=== PATIENT | female | born 1950 | race Caucasian/White ===

== ENCOUNTER 2020-08-13 06:23 | Outpatient (CLI) | payer MEDICARE, OTHER ==
[~2020-08-13] VITALS: Ht 152.4 cm; Wt 68.6 kg
[2020-08-13] MEDS ORDERED: OXCA150T18 PO (10:19)
[2020-08-13] MEDS ORDERED: CRAN1TAB4 PO (10:34)
[2020-08-13] MEDS ORDERED: CYAN100088 PO (10:34)
[2020-08-13] MEDS ORDERED: RIZA10TA23 PO (10:34)
[2020-08-13] MEDS ORDERED: CETI10TA49 PO (10:34)
[2020-08-13] MEDS ORDERED: LEVO125C4 PO (10:34)
[2020-08-13] MEDS ORDERED: ZINC50TA11 PO (10:34)
[2020-08-13] MEDS ORDERED: DULO20CA19 PO (10:34)
[2020-08-13] MEDS ORDERED: CALC-857 PO (10:34)
[2020-08-13] MEDS ORDERED: CHOL200059 PO (10:34)
[2020-08-13] MEDS ORDERED: [UNRECOGNIZED DRUG - CODE] IM (10:34)
[2020-08-13] MEDS ORDERED: OMEP20CA18 PO (10:34)
[2020-08-16] MEDS ORDERED: ACHD5005 PO (13:46)
== END 2020-08-13 10:42 | disposition home or self-care (01) ==
LOC: PREOP 06:23
PROVIDERS: ATTEND Surgery
DX: Z01.818 Encounter for other preprocedural examination (principal)

== ENCOUNTER 2020-08-16 11:24 | Day surgery (SDC) | payer MEDICARE, OTHER ==
[~2020-08-16] VITALS: Ht 152.4 cm; Wt 68.9 kg
[2020-08-16] VITALS (9 sets, daily range): BP systolic 118–144; BP diastolic 63–74
[~2020-08-16 11:24] MED LIST: CALC-857 PO; CETI10TA49 PO; CHOL200059 PO; CRAN1TAB4 PO; CYAN100088 PO; DULO20CA19 PO; LEVO125C4 PO; OMEP20CA18 PO; OXCA150T18 PO; RIZA10TA23 PO; ZINC50TA11 PO; [UNRECOGNIZED DRUG - CODE] IM
[2020-08-16] MEDS ORDERED: MIDAZOLAM 2 MG/2 ML (VERSED) VIAL ONE (11:37)
[2020-08-16] MEDS ORDERED: PROPOFOL INJECTION 50 ML IV ONE (11:37)
[2020-08-16] MEDS ORDERED: 0.9% SODIUM CHLORIDE PF INJ 20 ML VIAL ONE (11:40)
[2020-08-16] MEDS ORDERED: LIDOCAINE/EPI 1%-1:100,000 (XYLOCAINE) 50 ML ONE (11:40)
[2020-08-16] MEDS ORDERED: LACTATED RINGERS 1,000 ML IV PRN (11:45)
[2020-08-16] MEDS ORDERED: ceFAZolin 2 GM IV Premixed 50 ML IV ONE (11:45)
--- NOTE | 2020-08-16 12:56 | Progress Note-Pre Operative ---
Pre-Operative Progress Note H&P Reviewed The H&P was reviewed, patient examined and no changes noted. Time Seen by Provider: 12:54 Date H&P Reviewed: Aug 16, 2020 Time H&P Reviewed: 12:54 Pre-Operative Diagnosis: Endometrial CA, Venous Insufficiency SAL MONROE DO Aug 16, 2020 12:56
[2020-08-16] MEDS: HEParin (CENTRAL IV FLUSH) 500 UNIT/5 ML SYR ONE ×2 (13:36→13:37)
--- NOTE | 2020-08-16 13:45 | Progress Note-Post Operative ---
Post-Operative Progess Note Surgeon (s)/Assembling Fabricator (s) Surgeon SAL MONROE DO Assembling Fabricator: HEATHER Howard Pre-Operative Diagnosis Endometrial CA, Venous Insufficiency Post-Operative Diagnosis same Procedure & Operative Findings Date of Procedure 08/16/20 Procedure Performed/Findings PROCEDURE: [Right] subclavian vein port placement. COMPLICATIONS: None. INDICATIONS: The patient is a 70 year old female [with Endometrial CA and Venous Insufficiency]. Patient understands the risks and benefits of port placement and wished to proceed with the procedure. Consent was signed on the chart. PROCEDURE: The patient was taken to the operating suite, was prepped and draped in the sterile fashion. A surgical pause was performed. Loca lidocaine was used to infiltrate towards the clavicle and along the right anterior chest wall. Using 18gauge finder needle with negative inspiration the right subclavian vein was accessed on the first attempt. Dark nonpulsatile blood was withdrawn. The wire was inserted. Fluoroscopy assured proper placement. The needle and the wire was then secured. A [#11] blade scalpel was used to make an incision at the wire and over the right chest. Cautery was used to dissect down to the pectoral fascia. A pocket was created with blunt dissection. The dilator sheath was then advanced over the wire under fluoroscopy and the dilator and wire were removed. The Groshong catheter was inserted through the sheath and the sheath was then removed. The Groshong wire was removed. The catheter was then tunneled to the right chest pocket. Fluoroscopy was used to cut to length and this was then attached to the port which was then placed within the pocket. The port was then accessed without difficulty. It was then flushed with saline and then heparin. The subcutaneous tissues were then reapproximated using 3-0 Vicryl. The skin was closed with 4-0 Undyed monocryl, subcuticular stitches. The port had been sewn down to the chest wall with 3-0 Prolene. The areas were then washed and dried. Skin Affix was placed over incision. The patient tolerated the procedure well without complication and was taken to recovery room in stable condition. Anesthesia Type IV sedation by UTILITY HELICOPTER REPAIRER Estimated Blood Loss Estimated blood loss (mL): scant Specimens/Packing Specimens Removed none SAL MONROE DO Aug 16, 2020 13:45
[2020-08-16] MEDS ORDERED: ACHD5005 PO (13:46)
--- NOTE | 2020-08-16 13:47 | Discharge Inst-Surgical ---
Discharge Inst-Surgical Depart Medication/Instructions New, Converted or Re-Newed RX: RX Given to Pt/Family Patient Instructions Follow up Appt: Make appointment for 1 week. [phone] Instructions: May shower in 24 hours, no tub bath or soaking. Use incentive spirometer at home as directed. No Smoking Skin/Wound Care: May remove bandages in am. You need to leave the Dermabond on incision it will fall off on it's own. Symptoms to Report: Appetite Changes, Extremity Discoloration, Numbness/Tingling, Swelling Increased, Bleeding Excessive, Eyesight Changes, Pain Increased, Urine Color Change, Constipation(Persistent), Fever over 101 degree F, Pain/Pressure in chest, Urinating Difficulty, Cough Up/Vomit Blood, Heart Beat Irreg/Pounding, P ain/Pressure in jaw, Cramps in feet or legs, Lightheadedness, Pain/Pressure in shoulder, Diarrhea(Persistent), Memory Changes Suddenly, Questions/Concerns, Weight gain consecutive days, Dizziness/Fainting, Nausea/Vomiting, Shortness of Breath, Weight gain over 2 pounds If questions or concerns contact your physician Or seek help at emergency department. Activity Activity as Tolerated: Yes Activity Instructions: Avoid Stress to Incision Driving Instructions: No Driving/Refer to Dr. Linder Discharge Diet: No Restrictions Diet After 24 Hours: Clear Liquid if Nauseous If Any Problems/Questions/Issu: Contact Your Physician, Go to Emergency Room Skin/Wound Care Infection Signs and Symptoms: Increased Redness, Foul Odor of Wound, Increased Drainage, Skin Itchy or Has a Rash, Increased Swelling, Temperature Above 101 F Bathing Instructions: Shower Stitches/[place]/Dermabond Dis: SAL Ken DO Aug 16, 2020 13:47
[2020-08-16] MEDS ORDERED: fentaNYL INJ 100 MCG/2 ML AMP ONE (13:58)
[2020-08-16] MEDS ORDERED: fentaNYL INJ 100 MCG/2 ML AMP IVP ONE (14:15)
--- NOTE | 2020-08-16 14:16 | Anesthesia-General Post-Op ---
MAC Patient Condition Mental Status/LOC: Same as Preop Cardiovascular: Satisfactory Nausea/Vomiting: Absent Respiratory: Satisfactory Pain: Controlled Complications: Absent Post Op Complications Complications None Follow Up Care/Instructions Patient Instructions None needed. Anesthesiology Discharge Order Discharge Order Patient is doing well, no complaints, stable vital signs, no apparent adverse anesthesia problems. No complications reported per nursing. PEPE BUTCHER CRNA Aug 16, 2020 14:15
[2020-08-16] MEDS ORDERED: HYDROcodone/APAP 5 MG/325 MG (LORTAB) TAB ONE (14:37)
[2020-08-16] MEDS ORDERED: HYDROcodone/APAP 5 MG/325 MG (LORTAB) TAB PO ONE (14:45)
--- NOTE | 2020-08-16 18:12 | Diagnostic Imaging Report ---
INDICATION: Central line placement IMPRESSION: 4 seconds of fluoroscopy and single AP digital image of the chest was obtained in surgery by Dr. Jansen. Image shows right subclavian Port-A-Cath with tip projecting over the SVC. Dictated by: Dictated on workstation # [id number]
== END 2020-08-16 15:45 | disposition home or self-care (01) ==
LOC: SDC 11:24
PROVIDERS: ATTEND Surgery
DX: C54.1 Malignant neoplasm of endometrium (principal); I87.2 Venous insufficiency (chronic) (peripheral); E03.9 Hypothyroidism, unspecified; K21.9 Gastro-esophageal reflux disease without esophagitis; G51.39 Clonic hemifacial spasm, unspecified; R56.9 Unspecified convulsions; R25.1 Tremor, unspecified; Z79.899 Other long term (current) drug therapy; Z90.710 Acquired absence of both cervix and uterus; Z98.890 Other specified postprocedural states; Z90.722 Acquired absence of ovaries, bilateral; Z79.890 Hormone replacement therapy; Z87.39 Personal history of other diseases of the musculoskeletal system and connective tissue; Z79.1 Long term (current) use of non-steroidal anti-inflammatories (NSAID); Z79.891 Long term (current) use of opiate analgesic; Z82.3 Family history of stroke; Z82.49 Family history of ischemic heart disease and other diseases of the circulatory system; Z80.0 Family history of malignant neoplasm of digestive organs; Z80.3 Family history of malignant neoplasm of breast
CPT/HCPCS: 36561; 76000; 87081; C1788

== ENCOUNTER 2020-10-19 09:23 | Outpatient (RCR) | payer MEDICARE, OTHER ==
[2020-08-11 10:53] LABS: BASOPHILS % (AUTO) 1 % (0-10); EOSINOPHILS # (AUTO) 0.2 10^3/uL (0.0-0.3); EOSINOPHILS % (AUTO) 3 % (0-10); HEMATOCRIT 43 % (35-52); HEMOGLOBIN 13.8 g/dL (11.5-16.0); LYMPHOCYTES # (AUTO) 1.6 10^3/uL (1.0-4.0); LYMPHOCYTES % (AUTO) 31 % (12-44); MEAN CORPUSCULAR HEMOGLOBIN 31 pg (25-34); MEAN CORPUSCULAR HGB CONC 32 g/dL (32-36); MEAN CORPUSCULAR VOLUME 97 fL (80-99); MEAN PLATELET VOLUME 9.5 fL (9.0-12.2); MONOCYTES # (AUTO) 0.4 10^3/uL (0.0-1.0); MONOCYTES % (AUTO) 8 % (0-12); NEUTROPHILS # (AUTO) 2.8 10^3/uL (1.8-7.8); NEUTROPHILS % (AUTO) 56 % (42-75); PLATELET COUNT 238 10^3/uL (130-400)
[2020-08-11 11:12] LABS: ALANINE AMINOTRANSFERASE 24 U/L (0-55); ALBUMIN 4.3 GM/DL (3.2-4.5); ALKALINE PHOSPHATASE 71 U/L (40-136); BILIRUBIN,TOTAL 0.3 MG/DL (0.1-1.0); BUN/CREATININE RATIO 12; CALCIUM 9.3 MG/DL (8.5-10.1); CARBON DIOXIDE 26 MMOL/L (21-32); CHLORIDE 105 MMOL/L (98-107); CREATININE SERUM 0.89 MG/DL (0.60-1.30); GFR ESTIMATED > 60; GLUCOSE 147 MG/DL (70-105); POTASSIUM 3.8 MMOL/L (3.6-5.0); SODIUM 142 MMOL/L (135-145); TOTAL PROTEIN 7.8 GM/DL (6.4-8.2)
[2020-08-24 10:27] LABS: BASOPHILS % (AUTO) 0 % (0-10); EOSINOPHILS # (AUTO) 0.2 10^3/uL (0.0-0.3); EOSINOPHILS % (AUTO) 8 % (0-10); HEMATOCRIT 38 % (35-52); HEMOGLOBIN 12.5 g/dL (11.5-16.0); LYMPHOCYTES # (AUTO) 1.1 10^3/uL (1.0-4.0); LYMPHOCYTES % (AUTO) 41 % (12-44); MEAN CORPUSCULAR HEMOGLOBIN 31 pg (25-34); MEAN CORPUSCULAR HGB CONC 33 g/dL (32-36); MEAN CORPUSCULAR VOLUME 94 fL (80-99); MEAN PLATELET VOLUME 10.5 fL (9.0-12.2); MONOCYTES # (AUTO) 0.1 10^3/uL (0.0-1.0); MONOCYTES % (AUTO) 3 % (0-12); NEUTROPHILS # (AUTO) 1.3 10^3/uL (1.8-7.8); NEUTROPHILS % (AUTO) 48 % (42-75); PLATELET COUNT 162 10^3/uL (130-400); WHITE BLOOD COUNT 2.6 10^3/uL (4.3-11.0)
[2020-08-24 10:44] LABS: BUN/CREATININE RATIO 19; CALCIUM 9.1 MG/DL (8.5-10.1); CARBON DIOXIDE 24 MMOL/L (21-32); CHLORIDE 104 MMOL/L (98-107); CREATININE SERUM 0.69 MG/DL (0.60-1.30); GFR ESTIMATED > 60; GLUCOSE 111 MG/DL (70-105); POTASSIUM 3.9 MMOL/L (3.6-5.0); SODIUM 136 MMOL/L (135-145)
[2020-08-31 14:05] LABS: BASOPHILS % (AUTO) 1 % (0-10); EOSINOPHILS # (AUTO) 0.2 10^3/uL (0.0-0.3); EOSINOPHILS % (AUTO) 7 % (0-10); HEMATOCRIT 37 % (35-52); LYMPHOCYTES # (AUTO) 1.9 10^3/uL (1.0-4.0); LYMPHOCYTES % (AUTO) 64 % (12-44); MEAN CORPUSCULAR HEMOGLOBIN 31 pg (25-34); MEAN CORPUSCULAR HGB CONC 33 g/dL (32-36); MEAN CORPUSCULAR VOLUME 97 fL (80-99); MEAN PLATELET VOLUME 9.2 fL (9.0-12.2); MONOCYTES # (AUTO) 0.5 10^3/uL (0.0-1.0); MONOCYTES % (AUTO) 16 % (0-12); NEUTROPHILS # (AUTO) 0.3 10^3/uL (1.8-7.8); NEUTROPHILS % (AUTO) 11 % (42-75); PLATELET COUNT 269 10^3/uL (130-400); WHITE BLOOD COUNT 2.9 10^3/uL (4.3-11.0)
[2020-08-31 14:25] LABS: BUN/CREATININE RATIO 11; CALCIUM 9.2 MG/DL (8.5-10.1); CARBON DIOXIDE 21 MMOL/L (21-32); CHLORIDE 107 MMOL/L (98-107); CREATININE SERUM 0.82 MG/DL (0.60-1.30); GFR ESTIMATED > 60; GLUCOSE 137 MG/DL (70-105); POTASSIUM 3.8 MMOL/L (3.6-5.0); SODIUM 141 MMOL/L (135-145)
[2020-09-07 11:09] LABS: BASOPHILS % (AUTO) 0 % (0-10); EOSINOPHILS % (AUTO) 0 % (0-10); HEMATOCRIT 39 % (35-52); HEMOGLOBIN 12.8 g/dL (11.5-16.0); LYMPHOCYTES # (AUTO) 0.9 10^3/uL (1.0-4.0); LYMPHOCYTES % (AUTO) 8 % (12-44); MEAN CORPUSCULAR HEMOGLOBIN 31 pg (25-34); MEAN CORPUSCULAR HGB CONC 33 g/dL (32-36); MEAN CORPUSCULAR VOLUME 96 fL (80-99); MEAN PLATELET VOLUME 8.8 fL (9.0-12.2); MONOCYTES # (AUTO) 0.1 10^3/uL (0.0-1.0); MONOCYTES % (AUTO) 1 % (0-12); NEUTROPHILS # (AUTO) 9.5 10^3/uL (1.8-7.8); NEUTROPHILS % (AUTO) 90 % (42-75); PLATELET COUNT 305 10^3/uL (130-400); WHITE BLOOD COUNT 10.5 10^3/uL (4.3-11.0)
[2020-09-07 11:28] LABS: ALANINE AMINOTRANSFERASE 24 U/L (0-55); ALBUMIN 4.4 GM/DL (3.2-4.5); ALKALINE PHOSPHATASE 81 U/L (40-136); BILIRUBIN,TOTAL 0.2 MG/DL (0.1-1.0); BUN/CREATININE RATIO 16; CALCIUM 9.3 MG/DL (8.5-10.1); CARBON DIOXIDE 20 MMOL/L (21-32); CHLORIDE 104 MMOL/L (98-107); CREATININE SERUM 0.82 MG/DL (0.60-1.30); GFR ESTIMATED > 60; GLUCOSE 277 MG/DL (70-105); MAGNESIUM 1.8 MG/DL (1.6-2.4); POTASSIUM 3.8 MMOL/L (3.6-5.0); SODIUM 139 MMOL/L (135-145); TOTAL PROTEIN 7.9 GM/DL (6.4-8.2)
[2020-09-14 14:11] LABS: BASOPHILS % (AUTO) 1 % (0-10); EOSINOPHILS # (AUTO) 0.2 10^3/uL (0.0-0.3); EOSINOPHILS % (AUTO) 5 % (0-10); HEMATOCRIT 39 % (35-52); LYMPHOCYTES # (AUTO) 1.7 10^3/uL (1.0-4.0); LYMPHOCYTES % (AUTO) 39 % (12-44); MEAN CORPUSCULAR HEMOGLOBIN 31 pg (25-34); MEAN CORPUSCULAR HGB CONC 33 g/dL (32-36); MEAN CORPUSCULAR VOLUME 95 fL (80-99); MEAN PLATELET VOLUME 10.4 fL (9.0-12.2); MONOCYTES # (AUTO) 0.1 10^3/uL (0.0-1.0); MONOCYTES % (AUTO) 3 % (0-12); NEUTROPHILS # (AUTO) 2.3 10^3/uL (1.8-7.8); NEUTROPHILS % (AUTO) 52 % (42-75); PLATELET COUNT 163 10^3/uL (130-400); WHITE BLOOD COUNT 4.4 10^3/uL (4.3-11.0)
[2020-09-14 14:27] LABS: BUN/CREATININE RATIO 21; CALCIUM 9.3 MG/DL (8.5-10.1); CARBON DIOXIDE 26 MMOL/L (21-32); CHLORIDE 100 MMOL/L (98-107); CREATININE SERUM 0.86 MG/DL (0.60-1.30); GFR ESTIMATED > 60; GLUCOSE 130 MG/DL (70-105); POTASSIUM 3.7 MMOL/L (3.6-5.0); SODIUM 136 MMOL/L (135-145)
[2020-09-21 09:50] LABS: BASOPHILS % (AUTO) 1 % (0-10); EOSINOPHILS # (AUTO) 0.1 10^3/uL (0.0-0.3); EOSINOPHILS % (AUTO) 6 % (0-10); HEMATOCRIT 36 % (35-52); HEMOGLOBIN 11.6 g/dL (11.5-16.0); LYMPHOCYTES # (AUTO) 1.5 10^3/uL (1.0-4.0); LYMPHOCYTES % (AUTO) 65 % (12-44); MEAN CORPUSCULAR HEMOGLOBIN 31 pg (25-34); MEAN CORPUSCULAR HGB CONC 32 g/dL (32-36); MEAN CORPUSCULAR VOLUME 98 fL (80-99); MEAN PLATELET VOLUME 9.2 fL (9.0-12.2); MONOCYTES # (AUTO) 0.4 10^3/uL (0.0-1.0); MONOCYTES % (AUTO) 17 % (0-12); NEUTROPHILS # (AUTO) 0.2 10^3/uL (1.8-7.8); NEUTROPHILS % (AUTO) 10 % (42-75); PLATELET COUNT 178 10^3/uL (130-400); WHITE BLOOD COUNT 2.3 10^3/uL (4.3-11.0)
[2020-09-21 10:14] LABS: BUN/CREATININE RATIO 15; CALCIUM 8.8 MG/DL (8.5-10.1); CARBON DIOXIDE 23 MMOL/L (21-32); CHLORIDE 106 MMOL/L (98-107); CREATININE SERUM 0.75 MG/DL (0.60-1.30); GFR ESTIMATED > 60; GLUCOSE 174 MG/DL (70-105); POTASSIUM 3.7 MMOL/L (3.6-5.0); SODIUM 139 MMOL/L (135-145)
[2020-09-28 09:31] LABS: BASOPHILS % (AUTO) 0 % (0-10); EOSINOPHILS % (AUTO) 0 % (0-10); HEMATOCRIT 38 % (35-52); HEMOGLOBIN 12.5 g/dL (11.5-16.0); LYMPHOCYTES # (AUTO) 0.8 10^3/uL (1.0-4.0); LYMPHOCYTES % (AUTO) 10 % (12-44); MEAN CORPUSCULAR HEMOGLOBIN 32 pg (25-34); MEAN CORPUSCULAR HGB CONC 33 g/dL (32-36); MEAN CORPUSCULAR VOLUME 98 fL (80-99); MEAN PLATELET VOLUME 9.1 fL (9.0-12.2); MONOCYTES # (AUTO) 0.1 10^3/uL (0.0-1.0); MONOCYTES % (AUTO) 1 % (0-12); NEUTROPHILS # (AUTO) 7.2 10^3/uL (1.8-7.8); NEUTROPHILS % (AUTO) 88 % (42-75); PLATELET COUNT 317 10^3/uL (130-400); WHITE BLOOD COUNT 8.2 10^3/uL (4.3-11.0)
[2020-09-28 09:49] LABS: ALBUMIN 4.4 GM/DL (3.2-4.5); BILIRUBIN,TOTAL 0.2 MG/DL (0.1-1.0); CALCIUM 9.7 MG/DL (8.5-10.1); CREATININE SERUM 0.99 MG/DL (0.60-1.30); MAGNESIUM 1.6 MG/DL (1.6-2.4); POTASSIUM 3.9 MMOL/L (3.6-5.0)
[2020-10-04 15:14] LABS: BASOPHILS % (AUTO) 1 % (0-10); EOSINOPHILS # (AUTO) 0.1 10^3/uL (0.0-0.3); EOSINOPHILS % (AUTO) 3 % (0-10); HEMATOCRIT 39 % (35-52); HEMOGLOBIN 12.7 g/dL (11.5-16.0); LYMPHOCYTES # (AUTO) 1.4 10^3/uL (1.0-4.0); LYMPHOCYTES % (AUTO) 36 % (12-44); MEAN CORPUSCULAR HEMOGLOBIN 31 pg (25-34); MEAN CORPUSCULAR HGB CONC 33 g/dL (32-36); MEAN CORPUSCULAR VOLUME 97 fL (80-99); MEAN PLATELET VOLUME 9.9 fL (9.0-12.2); MONOCYTES # (AUTO) 0.1 10^3/uL (0.0-1.0); MONOCYTES % (AUTO) 3 % (0-12); NEUTROPHILS # (AUTO) 2.1 10^3/uL (1.8-7.8); NEUTROPHILS % (AUTO) 57 % (42-75); PLATELET COUNT 187 10^3/uL (130-400); WHITE BLOOD COUNT 3.8 10^3/uL (4.3-11.0)
[2020-10-04 15:31] LABS: CHLORIDE 98 MMOL/L (98-107); POTASSIUM 4.1 MMOL/L (3.6-5.0); SODIUM 138 MMOL/L (135-145)
[2020-10-04 15:33] LABS: GLUCOSE 93 MG/DL (70-105)
[2020-10-04 15:34] LABS: CARBON DIOXIDE 28 MMOL/L (21-32)
[2020-10-04 15:37] LABS: CREATININE SERUM 0.88 MG/DL (0.60-1.30); GFR ESTIMATED > 60
[2020-10-04 15:38] LABS: BUN/CREATININE RATIO 18
[2020-10-12 09:42] LABS: BASOPHILS % (AUTO) 1 % (0-10); EOSINOPHILS # (AUTO) 0.1 10^3/uL (0.0-0.3); EOSINOPHILS % (AUTO) 3 % (0-10); HEMATOCRIT 36 % (35-52); HEMOGLOBIN 11.6 g/dL (11.5-16.0); LYMPHOCYTES # (AUTO) 1.5 10^3/uL (1.0-4.0); LYMPHOCYTES % (AUTO) 66 % (12-44); MEAN CORPUSCULAR HEMOGLOBIN 32 pg (25-34); MEAN CORPUSCULAR HGB CONC 32 g/dL (32-36); MEAN CORPUSCULAR VOLUME 99 fL (80-99); MEAN PLATELET VOLUME 9.4 fL (9.0-12.2); MONOCYTES # (AUTO) 0.3 10^3/uL (0.0-1.0); MONOCYTES % (AUTO) 15 % (0-12); NEUTROPHILS # (AUTO) 0.3 10^3/uL (1.8-7.8); NEUTROPHILS % (AUTO) 15 % (42-75); PLATELET COUNT 228 10^3/uL (130-400); WHITE BLOOD COUNT 2.2 10^3/uL (4.3-11.0)
[2020-10-12 10:02] LABS: BUN/CREATININE RATIO 14; CARBON DIOXIDE 23 MMOL/L (21-32); CHLORIDE 104 MMOL/L (98-107); CREATININE SERUM 0.76 MG/DL (0.60-1.30); GFR ESTIMATED > 60; GLUCOSE 177 MG/DL (70-105); POTASSIUM 3.8 MMOL/L (3.6-5.0); SODIUM 139 MMOL/L (135-145)
[~2020-10-19] VITALS: Ht 152.4 cm; Wt 68.5 kg
[~2020-10-19 09:23] MED LIST changes: +ACHD5005 PO; +FAMOTIDINE 20MG/2ML IV (CANCER CTR) IV SCH; +FOSAPREPITANT (CANCER CENTER) 150 MG in NS (IVPB) CANCER CENTER ONLY 150 ML IV SCH; +NORMAL SALINE IV SCH; +NS IV 1000 ML (CANCER CTR) IV SCH; +NS IV 500 ML (CANCER CENTER) 500 ML ONE; +PACLITAXEL IV SCH; +diphenhydrAMINE 25 MG TAB (BENADRYL) CANCER CENTER PO SCH; +diphenhydrAMINE 50 MG/ML INJ (CANCER CENTER) IV PRN
[2020-10-19 09:38] LABS: BASOPHILS % (AUTO) 1 % (0-10); EOSINOPHILS # (AUTO) 0.1 10^3/uL (0.0-0.3); EOSINOPHILS % (AUTO) 2 % (0-10); HEMATOCRIT 38 % (35-52); HEMOGLOBIN 12.3 g/dL (11.5-16.0); LYMPHOCYTES # (AUTO) 1.5 10^3/uL (1.0-4.0); LYMPHOCYTES % (AUTO) 36 % (12-44); MEAN CORPUSCULAR HEMOGLOBIN 32 pg (25-34); MEAN CORPUSCULAR HGB CONC 32 g/dL (32-36); MEAN CORPUSCULAR VOLUME 100 fL (80-99); MEAN PLATELET VOLUME 9.1 fL (9.0-12.2); MONOCYTES # (AUTO) 0.6 10^3/uL (0.0-1.0); MONOCYTES % (AUTO) 14 % (0-12); NEUTROPHILS % (AUTO) 47 % (42-75); PLATELET COUNT 329 10^3/uL (130-400); WHITE BLOOD COUNT 4.2 10^3/uL (4.3-11.0)
[2020-10-19 09:59] LABS: ALANINE AMINOTRANSFERASE 24 U/L (0-55); ALBUMIN 4.2 GM/DL (3.2-4.5); ALKALINE PHOSPHATASE 69 U/L (40-136); BILIRUBIN,TOTAL 0.2 MG/DL (0.1-1.0); BUN/CREATININE RATIO 13; CALCIUM 9.8 MG/DL (8.5-10.1); CARBON DIOXIDE 26 MMOL/L (21-32); CHLORIDE 105 MMOL/L (98-107); CREATININE SERUM 0.78 MG/DL (0.60-1.30); GFR ESTIMATED > 60; GLUCOSE 159 MG/DL (70-105); MAGNESIUM 1.7 MG/DL (1.6-2.4); POTASSIUM 3.9 MMOL/L (3.6-5.0); SODIUM 140 MMOL/L (135-145); TOTAL PROTEIN 7.2 GM/DL (6.4-8.2)
== END 2020-10-31 | disposition home or self-care (01) ==
LOC: ONC 09:23
PROVIDERS: ATTEND Internal Medicine Hematology & Oncology
DX: C54.1 Malignant neoplasm of endometrium (principal); E03.9 Hypothyroidism, unspecified
CPT/HCPCS: 36591; 77290; 77300; 77301; 77334; 77338; 77470; 80048; 80053; 83735; 85025; 86304; 96367; 96375; 96413; 96415; 96417; 99204; 99213; 99214

== ENCOUNTER 2021-01-31 09:52 | Outpatient (RCR) | payer MEDICARE, OTHER ==
[2020-11-23 10:51] LABS: BASOPHILS % (AUTO) 0 % (0-10); EOSINOPHILS # (AUTO) 0.2 10^3/uL (0.0-0.3); EOSINOPHILS % (AUTO) 5 % (0-10); HEMATOCRIT 38 % (35-52); HEMOGLOBIN 12.6 g/dL (11.5-16.0); LYMPHOCYTES # (AUTO) 0.8 10^3/uL (1.0-4.0); LYMPHOCYTES % (AUTO) 24 % (12-44); MEAN CORPUSCULAR HEMOGLOBIN 34 pg (25-34); MEAN CORPUSCULAR HGB CONC 34 g/dL (32-36); MEAN CORPUSCULAR VOLUME 101 fL (80-99); MEAN PLATELET VOLUME 9.4 fL (9.0-12.2); MONOCYTES # (AUTO) 0.4 10^3/uL (0.0-1.0); MONOCYTES % (AUTO) 12 % (0-12); NEUTROPHILS % (AUTO) 59 % (42-75); PLATELET COUNT 165 10^3/uL (130-400); WHITE BLOOD COUNT 3.4 10^3/uL (4.3-11.0)
[2020-11-23 11:08] LABS: ALANINE AMINOTRANSFERASE 35 U/L (0-55); ALBUMIN 4.1 GM/DL (3.2-4.5); ALKALINE PHOSPHATASE 56 U/L (40-136); BILIRUBIN,TOTAL 0.3 MG/DL (0.1-1.0); BUN/CREATININE RATIO 18; CALCIUM 9.5 MG/DL (8.5-10.1); CARBON DIOXIDE 28 MMOL/L (21-32); CHLORIDE 106 MMOL/L (98-107); CREATININE SERUM 0.71 MG/DL (0.60-1.30); GFR ESTIMATED > 60; GLUCOSE 149 MG/DL (70-105); POTASSIUM 3.6 MMOL/L (3.6-5.0); SODIUM 141 MMOL/L (135-145); TOTAL PROTEIN 7.2 GM/DL (6.4-8.2)
[2020-12-27 15:21] LABS: BASOPHILS % (AUTO) 1 % (0-10); EOSINOPHILS # (AUTO) 0.1 10^3/uL (0.0-0.3); EOSINOPHILS % (AUTO) 3 % (0-10); HEMATOCRIT 37 % (35-52); HEMOGLOBIN 12.2 g/dL (11.5-16.0); LYMPHOCYTES # (AUTO) 0.8 X 10^3 (1.0-4.0); LYMPHOCYTES % (AUTO) 16 % (12-44); MEAN CORPUSCULAR HEMOGLOBIN 35 pg (25-34); MEAN CORPUSCULAR HGB CONC 33 g/dL (32-36); MEAN CORPUSCULAR VOLUME 103 fL (80-99); MEAN PLATELET VOLUME 8.8 fL (9.0-12.2); MONOCYTES # (AUTO) 0.5 X 10^3 (0.0-1.0); MONOCYTES % (AUTO) 11 % (0-12); NEUTROPHILS # (AUTO) 3.4 X 10^3 (1.8-7.8); NEUTROPHILS % (AUTO) 69 % (42-75); PLATELET COUNT 243 10^3/uL (130-400); WHITE BLOOD COUNT 4.9 10^3/uL (4.3-11.0)
[2020-12-27 15:47] LABS: ALBUMIN 4.2 GM/DL (3.2-4.5); BILIRUBIN,TOTAL 0.2 MG/DL (0.1-1.0); CALCIUM 9.1 MG/DL (8.5-10.1); CREATININE SERUM 0.81 MG/DL (0.60-1.30); POTASSIUM 3.7 MMOL/L (3.6-5.0); TOTAL PROTEIN 7.6 GM/DL (6.4-8.2)
[2021-01-24 10:29] LABS: BASOPHILS % (AUTO) 0 % (0-10); EOSINOPHILS % (AUTO) 0 % (0-10); HEMATOCRIT 40 % (35-52); HEMOGLOBIN 13.3 g/dL (11.5-16.0); LYMPHOCYTES # (AUTO) 0.7 10^3/uL (1.0-4.0); LYMPHOCYTES % (AUTO) 8 % (12-44); MEAN CORPUSCULAR HEMOGLOBIN 33 pg (25-34); MEAN CORPUSCULAR HGB CONC 34 g/dL (32-36); MEAN CORPUSCULAR VOLUME 100 fL (80-99); MEAN PLATELET VOLUME 9.5 fL (9.0-12.2); MONOCYTES # (AUTO) 0.1 10^3/uL (0.0-1.0); MONOCYTES % (AUTO) 1 % (0-12); NEUTROPHILS % (AUTO) 90 % (42-75); PLATELET COUNT 235 10^3/uL (130-400); WHITE BLOOD COUNT 7.8 10^3/uL (4.3-11.0)
[2021-01-24 10:48] LABS: ALBUMIN 4.3 GM/DL (3.2-4.5); BILIRUBIN,TOTAL 0.2 MG/DL (0.1-1.0); CALCIUM 9.3 MG/DL (8.5-10.1); CREATININE SERUM 0.91 MG/DL (0.60-1.30); POTASSIUM 3.8 MMOL/L (3.6-5.0); TOTAL PROTEIN 7.8 GM/DL (6.4-8.2)
[~2021-01-31 09:52] MED LIST changes: -NS IV 500 ML (CANCER CENTER) 500 ML ONE; +PEGFILGRASTIM 6 MG/0.6ML NEULASTA SC SCH; +PEGFILGRASTIM-BMEZ 6 MG/0.6 ML ZIEXTENZO SQ SCH
[2021-01-31 10:08] LABS: BASOPHILS # (AUTO) 0.1 10^3/uL (0.0-0.1); MEAN CORPUSCULAR VOLUME 100 fL (80-99)
[2021-01-31 10:10] LABS: BASOPHILS % (AUTO) 2 % (0-10); EOSINOPHILS # (AUTO) 0.2 10^3/uL (0.0-0.3); EOSINOPHILS % (AUTO) 6 % (0-10); HEMATOCRIT 39 % (35-52); HEMOGLOBIN 12.9 g/dL (11.5-16.0); LYMPHOCYTES # (AUTO) 0.7 10^3/uL (1.0-4.0); LYMPHOCYTES % (AUTO) 22 % (12-44); MEAN CORPUSCULAR HEMOGLOBIN 33 pg (25-34); MEAN CORPUSCULAR HGB CONC 33 g/dL (32-36); MONOCYTES # (AUTO) 0.6 10^3/uL (0.0-1.0); MONOCYTES % (AUTO) 20 % (0-12); NEUTROPHILS # (AUTO) 1.3 10^3/uL (1.8-7.8); NEUTROPHILS % (AUTO) 41 % (42-75); PLATELET COUNT 80 10^3/uL (130-400); WHITE BLOOD COUNT 3.2 10^3/uL (4.3-11.0)
[2021-01-31 11:47] LABS: CALCIUM 9.4 MG/DL (8.5-10.1); CREATININE SERUM 0.73 MG/DL (0.60-1.30); POTASSIUM 3.7 MMOL/L (3.6-5.0)
== END 2021-02-01 | disposition home or self-care (01) ==
LOC: ONC 09:52
PROVIDERS: ATTEND Internal Medicine Hematology & Oncology
DX: Z51.11 Encounter for antineoplastic chemotherapy (principal); Z51.0 Encounter for antineoplastic radiation therapy; C54.1 Malignant neoplasm of endometrium; E03.9 Hypothyroidism, unspecified; B02.9 Zoster without complications; Z90.710 Acquired absence of both cervix and uterus; Z90.722 Acquired absence of ovaries, bilateral; Z98.890 Other specified postprocedural states; Z92.21 Personal history of antineoplastic chemotherapy; Z79.890 Hormone replacement therapy
CPT/HCPCS: 36591; 77336; 77386; 80048; 80053; 85025; 96368; 96372; 96375; 96413; 96415; 96417; 99213

== ENCOUNTER → 2021-03-30 | Outpatient (CLI) | payer MEDICARE, OTHER ==
[~2021-03-30] MED LIST changes: +CATHETER FLUSH 10 ML SYR IV PRN; -FAMOTIDINE 20MG/2ML IV (CANCER CTR) IV SCH; -FOSAPREPITANT (CANCER CENTER) 150 MG in NS (IVPB) CANCER CENTER ONLY 150 ML IV SCH; +HOLD METFORMIN - RECEIVED CONTRAST 20 ML VIAL IV SCH; +IOHEXOL 350 MG/ML 100 ML (OMNIPAQUE 350) VIAL IV ONE; -NORMAL SALINE IV SCH; +NS 100 ML (IVPB) BAG IV ONE; -NS IV 1000 ML (CANCER CTR) IV SCH; -PACLITAXEL IV SCH; -PEGFILGRASTIM 6 MG/0.6ML NEULASTA SC SCH; -PEGFILGRASTIM-BMEZ 6 MG/0.6 ML ZIEXTENZO SQ SCH; -diphenhydrAMINE 25 MG TAB (BENADRYL) CANCER CENTER PO SCH; -diphenhydrAMINE 50 MG/ML INJ (CANCER CENTER) IV PRN
--- NOTE | 2021-03-30 10:19 | Diagnostic Imaging Report ---
EXAMINATION: CT chest with intravenous contrast, CT abdomen and pelvis without and with intravenous contrast. TECHNIQUE: Pre and post intravenous contrast axial imaging of the abdomen and pelvis and post contrast axial imaging of the chest were performed. All CT scans use one or more of the following dose optimizing techniques: automated exposure control, MA and/or KvP adjustment based on patient size and exam type or iterative reconstruction. HISTORY: Endometrial cancer. COMPARISON: None available. FINDINGS: There is no edema or pneumonia. No pleural effusion. No pneumothorax. No suspicious nodules. There is mild atelectasis in the lung bases. There is no axillary or supraclavicular lymphadenopathy. There is no mediastinal lymphadenopathy. Heart size is normal. There are no coronary artery calcifications. No pericardial effusion. Aorta is normal in caliber. A right-sided port catheter is present. The liver is mildly steatotic. No focal liver lesions are seen. There is no biliary ductal dilation. Gallbladder is normal. Pancreas is normal. Spleen is normal. Adrenal glands are normal. The kidneys are normal. There is no hydronephrosis. Urinary bladder is normal. Uterus has been removed. Visualized bowel is normal in caliber without obstruction or inflammation. No free fluid or air. No abdominal or pelvic lymphadenopathy. Aorta is normal in caliber without aneurysm. There are no suspicious osseus lesions. IMPRESSION: No metastatic disease is seen in the chest, abdomen, or pelvis. Dictated by: Dictated on workstation # [id number]
== END ==
LOC: RAD 09:45
PROVIDERS: ATTEND Internal Medicine Hematology & Oncology
DX: Z51.11 Encounter for antineoplastic chemotherapy (principal); C54.1 Malignant neoplasm of endometrium
CPT/HCPCS: 71260; 74178

== ENCOUNTER 2021-04-07 10:59 | Outpatient (RCR) | payer MEDICARE, OTHER ==
[2021-02-08 10:17] LABS: BASOPHILS # (AUTO) 0.1 10^3/uL (0.0-0.1); BASOPHILS % (AUTO) 1 % (0-10); EOSINOPHILS # (AUTO) 0.2 10^3/uL (0.0-0.3); EOSINOPHILS % (AUTO) 4 % (0-10); HEMATOCRIT 38 % (35-52); HEMOGLOBIN 12.2 g/dL (11.5-16.0); LYMPHOCYTES # (AUTO) 1.2 10^3/uL (1.0-4.0); LYMPHOCYTES % (AUTO) 25 % (12-44); MEAN CORPUSCULAR HEMOGLOBIN 32 pg (25-34); MEAN CORPUSCULAR HGB CONC 32 g/dL (32-36); MEAN CORPUSCULAR VOLUME 100 fL (80-99); MEAN PLATELET VOLUME 9.8 fL (9.0-12.2); MONOCYTES # (AUTO) 0.5 10^3/uL (0.0-1.0); MONOCYTES % (AUTO) 10 % (0-12); NEUTROPHILS # (AUTO) 2.7 10^3/uL (1.8-7.8); NEUTROPHILS % (AUTO) 56 % (42-75); PLATELET COUNT 162 10^3/uL (130-400); WHITE BLOOD COUNT 4.8 10^3/uL (4.3-11.0)
[2021-02-08 10:30] LABS: CALCIUM 9.6 MG/DL (8.5-10.1); CREATININE SERUM 0.84 MG/DL (0.60-1.30); POTASSIUM 3.8 MMOL/L (3.6-5.0)
[2021-02-14 10:45] LABS: BASOPHILS % (AUTO) 0 % (0-10); EOSINOPHILS % (AUTO) 0 % (0-10); HEMATOCRIT 37 % (35-52); HEMOGLOBIN 12.2 g/dL (11.5-16.0); LYMPHOCYTES # (AUTO) 0.6 10^3/uL (1.0-4.0); LYMPHOCYTES % (AUTO) 14 % (12-44); MEAN CORPUSCULAR HEMOGLOBIN 33 pg (25-34); MEAN CORPUSCULAR HGB CONC 33 g/dL (32-36); MEAN CORPUSCULAR VOLUME 99 fL (80-99); MEAN PLATELET VOLUME 9.2 fL (9.0-12.2); MONOCYTES # (AUTO) 0.1 10^3/uL (0.0-1.0); MONOCYTES % (AUTO) 1 % (0-12); NEUTROPHILS # (AUTO) 3.7 10^3/uL (1.8-7.8); NEUTROPHILS % (AUTO) 84 % (42-75); PLATELET COUNT 275 10^3/uL (130-400); WHITE BLOOD COUNT 4.3 10^3/uL (4.3-11.0)
[2021-02-14 11:03] LABS: ALBUMIN 4.3 GM/DL (3.2-4.5); BILIRUBIN,TOTAL 0.3 MG/DL (0.1-1.0); CALCIUM 9.6 MG/DL (8.5-10.1); CREATININE SERUM 0.95 MG/DL (0.60-1.30); TOTAL PROTEIN 7.4 GM/DL (6.4-8.2)
[2021-02-21 10:28] LABS: BASOPHILS # (AUTO) 0.1 10^3/uL (0.0-0.1); BASOPHILS % (AUTO) 2 % (0-10); EOSINOPHILS # (AUTO) 0.2 10^3/uL (0.0-0.3); EOSINOPHILS % (AUTO) 5 % (0-10); HEMATOCRIT 35 % (35-52); HEMOGLOBIN 11.3 g/dL (11.5-16.0); LYMPHOCYTES % (AUTO) 25 % (12-44); MEAN CORPUSCULAR HEMOGLOBIN 33 pg (25-34); MEAN CORPUSCULAR HGB CONC 33 g/dL (32-36); MEAN CORPUSCULAR VOLUME 100 fL (80-99); MEAN PLATELET VOLUME 11.1 fL (9.0-12.2); MONOCYTES # (AUTO) 0.7 10^3/uL (0.0-1.0); MONOCYTES % (AUTO) 17 % (0-12); NEUTROPHILS # (AUTO) 1.8 10^3/uL (1.8-7.8); NEUTROPHILS % (AUTO) 45 % (42-75); PLATELET COUNT 50 10^3/uL (130-400); WHITE BLOOD COUNT 4.1 10^3/uL (4.3-11.0)
[2021-02-21 10:41] LABS: CALCIUM 9.2 MG/DL (8.5-10.1); CREATININE SERUM 0.75 MG/DL (0.60-1.30); POTASSIUM 3.7 MMOL/L (3.6-5.0)
[2021-02-28 10:04] LABS: BASOPHILS % (AUTO) 1 % (0-10); EOSINOPHILS # (AUTO) 0.2 10^3/uL (0.0-0.3); EOSINOPHILS % (AUTO) 3 % (0-10); HEMATOCRIT 36 % (35-52); HEMOGLOBIN 11.6 g/dL (11.5-16.0); LYMPHOCYTES # (AUTO) 1.2 10^3/uL (1.0-4.0); LYMPHOCYTES % (AUTO) 24 % (12-44); MEAN CORPUSCULAR HEMOGLOBIN 33 pg (25-34); MEAN CORPUSCULAR HGB CONC 32 g/dL (32-36); MEAN CORPUSCULAR VOLUME 103 fL (80-99); MEAN PLATELET VOLUME 10.1 fL (9.0-12.2); MONOCYTES # (AUTO) 0.4 10^3/uL (0.0-1.0); MONOCYTES % (AUTO) 8 % (0-12); NEUTROPHILS # (AUTO) 3.2 10^3/uL (1.8-7.8); NEUTROPHILS % (AUTO) 62 % (42-75); PLATELET COUNT 157 10^3/uL (130-400); WHITE BLOOD COUNT 5.2 10^3/uL (4.3-11.0)
[2021-02-28 10:20] LABS: CALCIUM 9.5 MG/DL (8.5-10.1); CREATININE SERUM 0.8 MG/DL (0.60-1.30); POTASSIUM 3.6 MMOL/L (3.6-5.0)
[2021-03-07 09:11] LABS: BASOPHILS % (AUTO) 0 % (0-10); EOSINOPHILS % (AUTO) 0 % (0-10); HEMATOCRIT 35 % (35-52); HEMOGLOBIN 11.6 g/dL (11.5-16.0); LYMPHOCYTES # (AUTO) 0.6 10^3/uL (1.0-4.0); LYMPHOCYTES % (AUTO) 12 % (12-44); MEAN CORPUSCULAR HEMOGLOBIN 34 pg (25-34); MEAN CORPUSCULAR HGB CONC 33 g/dL (32-36); MEAN CORPUSCULAR VOLUME 101 fL (80-99); MEAN PLATELET VOLUME 9.1 fL (9.0-12.2); MONOCYTES % (AUTO) 1 % (0-12); NEUTROPHILS # (AUTO) 4.5 10^3/uL (1.8-7.8); NEUTROPHILS % (AUTO) 86 % (42-75); PLATELET COUNT 298 10^3/uL (130-400); WHITE BLOOD COUNT 5.2 10^3/uL (4.3-11.0)
[2021-03-07 09:33] LABS: ALBUMIN 4.3 GM/DL (3.2-4.5); BILIRUBIN,TOTAL 0.4 MG/DL (0.1-1.0); CALCIUM 9.8 MG/DL (8.5-10.1); CREATININE SERUM 0.83 MG/DL (0.60-1.30); MAGNESIUM 1.7 MG/DL (1.6-2.4); POTASSIUM 3.9 MMOL/L (3.6-5.0); TOTAL PROTEIN 7.6 GM/DL (6.4-8.2)
[2021-03-14 09:48] LABS: MEAN CORPUSCULAR HEMOGLOBIN 33 pg (25-34); MEAN PLATELET VOLUME 11.8 fL (9.0-12.2)
[2021-03-14 09:49] LABS: BILIRUBIN,URINE NEGATIVE (NEGATIVE); CLARITY,URINE CLEAR; COLOR,URINE YELLOW; GLUCOSE, URINE (UA) NEGATIVE (NEGATIVE); KETONES,URINE NEGATIVE (NEGATIVE); LEUKOCYTE ESTERASE ,URINE 1+ (NEGATIVE); NITRITE,URINE NEGATIVE (NEGATIVE); PROTEIN,URINE 2+ (NEGATIVE)
[2021-03-14 09:50] LABS: BASOPHILS % (AUTO) 0 % (0-10); EOSINOPHILS # (AUTO) 0.3 10^3/uL (0.0-0.3); EOSINOPHILS % (AUTO) 4 % (0-10); HEMATOCRIT 33 % (35-52); HEMOGLOBIN 10.8 g/dL (11.5-16.0); LYMPHOCYTES # (AUTO) 1.3 10^3/uL (1.0-4.0); LYMPHOCYTES % (AUTO) 18 % (12-44); MEAN CORPUSCULAR HGB CONC 33 g/dL (32-36); MEAN CORPUSCULAR VOLUME 100 fL (80-99); MONOCYTES # (AUTO) 1.1 10^3/uL (0.0-1.0); MONOCYTES % (AUTO) 15 % (0-12); NEUTROPHILS # (AUTO) 3.7 10^3/uL (1.8-7.8); NEUTROPHILS % (AUTO) 52 % (42-75); WHITE BLOOD COUNT 7.2 10^3/uL (4.3-11.0)
[2021-03-14 09:56] LABS: PLATELET COUNT 49 10^3/uL (130-400)
[2021-03-14 10:13] LABS: CALCIUM 9.7 MG/DL (8.5-10.1); CREATININE SERUM 0.71 MG/DL (0.60-1.30); POTASSIUM 3.9 MMOL/L (3.6-5.0)
[2021-03-14 10:25] LABS: BACTERIA,URINE NEGATIVE /HPF
[2021-03-21 09:52] LABS: BASOPHILS % (AUTO) 0 % (0-10); EOSINOPHILS # (AUTO) 0.1 10^3/uL (0.0-0.3); EOSINOPHILS % (AUTO) 3 % (0-10); HEMATOCRIT 32 % (35-52); HEMOGLOBIN 10.4 g/dL (11.5-16.0); LYMPHOCYTES # (AUTO) 1.2 10^3/uL (1.0-4.0); LYMPHOCYTES % (AUTO) 24 % (12-44); MEAN CORPUSCULAR HEMOGLOBIN 34 pg (25-34); MEAN CORPUSCULAR HGB CONC 32 g/dL (32-36); MEAN CORPUSCULAR VOLUME 105 fL (80-99); MONOCYTES # (AUTO) 0.4 10^3/uL (0.0-1.0); MONOCYTES % (AUTO) 8 % (0-12); NEUTROPHILS # (AUTO) 2.9 10^3/uL (1.8-7.8); NEUTROPHILS % (AUTO) 61 % (42-75); PLATELET COUNT 160 10^3/uL (130-400); WHITE BLOOD COUNT 4.8 10^3/uL (4.3-11.0)
[2021-03-21 10:07] LABS: CALCIUM 9.3 MG/DL (8.5-10.1); CREATININE SERUM 0.74 MG/DL (0.60-1.30); POTASSIUM 3.5 MMOL/L (3.6-5.0)
[2021-03-30 08:41] LABS: BASOPHILS % (AUTO) 1 % (0-10); EOSINOPHILS # (AUTO) 0.1 10^3/uL (0.0-0.3); EOSINOPHILS % (AUTO) 4 % (0-10); HEMATOCRIT 34 % (35-52); HEMOGLOBIN 11.2 g/dL (11.5-16.0); LYMPHOCYTES % (AUTO) 29 % (12-44); MEAN CORPUSCULAR HEMOGLOBIN 34 pg (25-34); MEAN CORPUSCULAR HGB CONC 33 g/dL (32-36); MEAN CORPUSCULAR VOLUME 103 fL (80-99); MEAN PLATELET VOLUME 8.9 fL (9.0-12.2); MONOCYTES # (AUTO) 0.5 10^3/uL (0.0-1.0); MONOCYTES % (AUTO) 14 % (0-12); NEUTROPHILS # (AUTO) 1.8 10^3/uL (1.8-7.8); NEUTROPHILS % (AUTO) 52 % (42-75); PLATELET COUNT 259 10^3/uL (130-400); WHITE BLOOD COUNT 3.5 10^3/uL (4.3-11.0)
[2021-03-30 08:57] LABS: CALCIUM 9.5 MG/DL (8.5-10.1); CREATININE SERUM 0.69 MG/DL (0.60-1.30); POTASSIUM 3.9 MMOL/L (3.6-5.0)
[2021-04-04 10:16] LABS: BASOPHILS % (AUTO) 1 % (0-10); EOSINOPHILS # (AUTO) 0.3 10^3/uL (0.0-0.3); EOSINOPHILS % (AUTO) 11 % (0-10); HEMATOCRIT 35 % (35-52); HEMOGLOBIN 11.5 g/dL (11.5-16.0); LYMPHOCYTES # (AUTO) 0.9 10^3/uL (1.0-4.0); LYMPHOCYTES % (AUTO) 30 % (12-44); MEAN CORPUSCULAR HEMOGLOBIN 34 pg (25-34); MEAN CORPUSCULAR HGB CONC 33 g/dL (32-36); MEAN CORPUSCULAR VOLUME 105 fL (80-99); MEAN PLATELET VOLUME 9.1 fL (9.0-12.2); MONOCYTES # (AUTO) 0.4 10^3/uL (0.0-1.0); MONOCYTES % (AUTO) 14 % (0-12); NEUTROPHILS # (AUTO) 1.3 10^3/uL (1.8-7.8); NEUTROPHILS % (AUTO) 45 % (42-75); PLATELET COUNT 213 10^3/uL (130-400)
[2021-04-04 10:41] LABS: ALBUMIN 4.1 GM/DL (3.2-4.5); BILIRUBIN,TOTAL 0.3 MG/DL (0.1-1.0); CALCIUM 9.4 MG/DL (8.5-10.1); CREATININE SERUM 0.76 MG/DL (0.60-1.30); MAGNESIUM 1.6 MG/DL (1.6-2.4); POTASSIUM 3.7 MMOL/L (3.6-5.0); TOTAL PROTEIN 6.8 GM/DL (6.4-8.2)
[~2021-04-07 10:59] MED LIST changes: -CATHETER FLUSH 10 ML SYR IV PRN; +FAMOTIDINE 20MG/2ML IV (CANCER CTR) IV SCH; +FOSAPREPITANT (CANCER CENTER) 150 MG in NS (IVPB) CANCER CENTER ONLY 150 ML IV SCH; -HOLD METFORMIN - RECEIVED CONTRAST 20 ML VIAL IV SCH; -IOHEXOL 350 MG/ML 100 ML (OMNIPAQUE 350) VIAL IV ONE; +NORMAL SALINE IV SCH; -NS 100 ML (IVPB) BAG IV ONE; +NS IV 1000 ML (CANCER CTR) IV SCH; +PACLITAXEL IV SCH; +PEGFILGRASTIM-BMEZ 6 MG/0.6 ML ZIEXTENZO SQ SCH; +diphenhydrAMINE 25 MG TAB (BENADRYL) CANCER CENTER PO SCH; +diphenhydrAMINE 50 MG/ML INJ (CANCER CENTER) IV PRN
[2021-04-07 11:17] LABS: BILIRUBIN,URINE NEGATIVE (NEGATIVE); CLARITY,URINE CLEAR; COLOR,URINE YELLOW; GLUCOSE, URINE (UA) NEGATIVE (NEGATIVE); KETONES,URINE NEGATIVE (NEGATIVE); LEUKOCYTE ESTERASE ,URINE NEGATIVE (NEGATIVE); NITRITE,URINE NEGATIVE (NEGATIVE); PH,URINE 5.5 (5-9); PROTEIN,URINE NEGATIVE (NEGATIVE)
[2021-04-07 11:24] LABS: BACTERIA,URINE NEGATIVE /HPF; SQUAMOUS EPITHELIAL CELL,UR RARE /HPF
== END 2021-05-09 | disposition home or self-care (01) ==
LOC: ONC 10:59
PROVIDERS: ATTEND Internal Medicine Hematology & Oncology
DX: Z51.11 Encounter for antineoplastic chemotherapy (principal); C54.1 Malignant neoplasm of endometrium; E03.9 Hypothyroidism, unspecified; Z90.710 Acquired absence of both cervix and uterus; Z90.722 Acquired absence of ovaries, bilateral; Z98.890 Other specified postprocedural states; Z92.21 Personal history of antineoplastic chemotherapy; Z92.3 Personal history of irradiation
CPT/HCPCS: 36591; 80048; 80053; 81000; 83735; 85025; 86304; 96367; 96372; 96375; 96413; 96415; 96417

== ENCOUNTER 2021-05-16 10:54 | Outpatient (RCR) | payer MEDICARE, OTHER ==
[~2021-05-16 10:54] MED LIST changes: -FAMOTIDINE 20MG/2ML IV (CANCER CTR) IV SCH; -FOSAPREPITANT (CANCER CENTER) 150 MG in NS (IVPB) CANCER CENTER ONLY 150 ML IV SCH; -NORMAL SALINE IV SCH; -NS IV 1000 ML (CANCER CTR) IV SCH; -PACLITAXEL IV SCH; -PEGFILGRASTIM-BMEZ 6 MG/0.6 ML ZIEXTENZO SQ SCH; -diphenhydrAMINE 25 MG TAB (BENADRYL) CANCER CENTER PO SCH; -diphenhydrAMINE 50 MG/ML INJ (CANCER CENTER) IV PRN
[2021-05-16 11:31] LABS: BASOPHILS % (AUTO) 1 % (0-10); EOSINOPHILS # (AUTO) 0.2 10^3/uL (0.0-0.3); EOSINOPHILS % (AUTO) 5 % (0-10); HEMATOCRIT 38 % (35-52); HEMOGLOBIN 12.7 g/dL (11.5-16.0); LYMPHOCYTES # (AUTO) 1.4 10^3/uL (1.0-4.0); LYMPHOCYTES % (AUTO) 39 % (12-44); MEAN CORPUSCULAR HEMOGLOBIN 34 pg (25-34); MEAN CORPUSCULAR HGB CONC 33 g/dL (32-36); MEAN CORPUSCULAR VOLUME 103 fL (80-99); MEAN PLATELET VOLUME 8.9 fL (9.0-12.2); MONOCYTES # (AUTO) 0.4 10^3/uL (0.0-1.0); MONOCYTES % (AUTO) 12 % (0-12); NEUTROPHILS # (AUTO) 1.5 10^3/uL (1.8-7.8); NEUTROPHILS % (AUTO) 43 % (42-75); PLATELET COUNT 231 10^3/uL (130-400); WHITE BLOOD COUNT 3.5 10^3/uL (4.3-11.0)
[2021-05-16 11:51] LABS: ALBUMIN 4.1 GM/DL (3.2-4.5); BILIRUBIN,TOTAL 0.3 MG/DL (0.1-1.0); CALCIUM 9.6 MG/DL (8.5-10.1); CREATININE SERUM 0.77 MG/DL (0.60-1.30); POTASSIUM 3.8 MMOL/L (3.6-5.0); TOTAL PROTEIN 7.2 GM/DL (6.4-8.2)
== END 2021-06-03 | disposition home or self-care (01) ==
LOC: ONC 10:54
PROVIDERS: ATTEND Internal Medicine Hematology & Oncology
DX: Z51.11 Encounter for antineoplastic chemotherapy (principal); C54.1 Malignant neoplasm of endometrium; E03.9 Hypothyroidism, unspecified; Z90.710 Acquired absence of both cervix and uterus; Z90.722 Acquired absence of ovaries, bilateral; Z98.890 Other specified postprocedural states; Z92.21 Personal history of antineoplastic chemotherapy; Z92.3 Personal history of irradiation
CPT/HCPCS: 36591; 80053; 85025; 86304

== ENCOUNTER 2021-08-18 08:54 | Outpatient (RCR) | payer MEDICARE, OTHER | END 2021-09-01 | LOC: ONC 08:54 | PROVIDERS: ATTEND Radiology Radiation Oncology | DX: C54.1 Malignant neoplasm of endometrium (principal); E03.9 Hypothyroidism, unspecified; Z90.710 Acquired absence of both cervix and uterus; Z90.722 Acquired absence of ovaries, bilateral; Z98.890 Other specified postprocedural states; Z92.21 Personal history of antineoplastic chemotherapy; Z92.3 Personal history of irradiation | CPT/HCPCS: 99213 ==

== ENCOUNTER → 2022-06-06 | Outpatient (CLI) | payer MEDICARE, OTHER ==
[~2022-06-06] MED LIST changes: +RIZA-1 PO; -RIZA10TA23 PO
--- NOTE | 2022-06-07 09:38 | Diagnostic Imaging Report ---
Indication: Routine screening. Comparison is made with prior mammogram 06/24/2018. 2-D and 3-D bilateral screening mammography was performed with CAD. CAD is utilized. The current study was also evaluated with a Computer Aided Detection (CAD) system. Both breasts are heterogeneously dense, limiting the sensitivity of mammography. A spiculated density in the upper aspect of the left breast posterior depth anterior to the pectoralis muscle appears more prominent on today's study. This appears to be laterally located, barely seen on the CC view. Right breast is unremarkable. There are scattered benign calcifications. No malignant-appearing microcalcifications are seen. Left axilla is unremarkable. Right axilla contains an infuse-a port hub. IMPRESSION: BI-RADS 0 Left breast density. Additional views including spot compression, lateral as well as exaggerated CC views are recommended. ACR BI-RADS Category 0: Incomplete. (Needs additional imaging evaluation). Result letter will be mailed to the patient. Note: At least 10% of breast cancer is not imaged by mammography. Dictated by: Dictated on workstation # [id number]
== END ==
LOC: RAD 10:08
PROVIDERS: ATTEND Nurse Practitioner
DX: Z12.31 Encounter for screening mammogram for malignant neoplasm of breast (principal); C54.1 Malignant neoplasm of endometrium
CPT/HCPCS: 77063; 77067

== ENCOUNTER → 2022-06-14 | Outpatient (CLI) | payer MEDICARE, OTHER ==
--- NOTE | 2022-06-14 13:08 | Diagnostic Imaging Report ---
INDICATION: Left breast density. Patient presents for additional views. Correlation is made with screening study from 06/06/2022. Unilateral left 2-D and 3-D diagnostic mammography was performed. This included exaggerated CC, spot compression, exaggerated CC, spot compression mediolateral as well as conventional 90 degrees lateral views. There is a persistent irregular density in the upper outer left breast posterior depth. No other masses are seen. IMPRESSION: Persistent irregular density in the upper outer left breast posterior depth approximately 9 to 12 cm from the nipple. Further evaluation of this area with ultrasound is recommended and will be performed today. Dictated by: Dictated on workstation # [id number]
--- NOTE | 2022-06-14 19:11 | Diagnostic Imaging Report ---
INDICATION: Abnormal left mammogram. COMPARISON: Correlation is made with screening mammogram from 06/06/2022 and diagnostic mammogram from 06/14/2022. EXAMINATION: Sonographic interrogation of the upper outer left breast was performed. FINDINGS: There is an irregular hypoechoic nodule at the 2:00 to 2:30 location in left breast, 9 cm from the nipple, measuring 5 mm x 8 mm x 5 mm. This does show some internal vascularity. This likely accounts for the mammographic density. No other masses are seen. IMPRESSION: Irregular hypoechoic nodule at the 2:00 location of left breast, 9 cm from the nipple, likely accounting for the mammographic density. This is concerning for a small breast neoplasm. Tissue sampling is recommended. This would be amenable to ultrasound-guided core biopsy. ACR BI-RADS Category 4: Suspicious abnormality. Result letter will be mailed to the patient. Note: At least 10% of breast cancer is not imaged by mammography. Dictated by: Dictated on workstation # [id number]
== END ==
LOC: RAD 11:58
PROVIDERS: ATTEND Internal Medicine Hematology & Oncology
DX: N63.21 Unspecified lump in the left breast, upper outer quadrant (principal)
CPT/HCPCS: 76642; 77065; G0279

== ENCOUNTER → 2022-06-23 | Outpatient (CLI) | payer MEDICARE, OTHER ==
[~2022-06-23] MED LIST changes: +LIDOCAINE 1% INJ 30 ML (XYLOCAINE) VIAL INJ ONE
--- NOTE | 2022-06-23 11:10 | Diagnostic Imaging Report ---
Indication: Left breast nodule. Patient presents for ultrasound-guided biopsy. Patient brought to the sonographic suite placed on table in the supine position. Ultrasound imaging of the left breast was performed to evaluate appropriate entry site. Left breast was then prepped and draped in usual sterile fashion. Small amount of 1% lidocaine was utilized for local anesthesia. Multiple core biopsies were obtained of the hypoechoic nodule at the 2-2:30 location of the left breast, 9 cm from the nipple utilizing the 14-gauge mammotome device. A marker clip was then deployed.. Hemostasis was obtained using manual compression. Patient tolerated procedure well and was sent for postprocedure mammogram in satisfactory condition. IMPRESSION: Successful ultrasound guided core biopsy of the hypoechoic nodule at the 2-2:30 location left breast, 9 cm from the nipple. Pathology results are currently pending. Dictated by: Dictated on workstation # [id number]
--- NOTE | 2022-06-23 12:29 | Diagnostic Imaging Report ---
Indication: Left breast nodule, status post ultrasound-guided biopsy. Unilateral left 2-D exaggerated CC and ML mammography was performed after patient underwent ultrasound-guided left breast biopsy. Images demonstrate a marker clip in the upper outer aspect of the left breast posterior depth. IMPRESSION: Marker clip placement, as described. Dictated by: Dictated on workstation # [id number]
== END ==
LOC: RAD 09:00
PROVIDERS: ATTEND Internal Medicine Hematology & Oncology
DX: N63.22 Unspecified lump in the left breast, upper inner quadrant (principal)
CPT/HCPCS: 19083; 77065; G0279

== ENCOUNTER → 2022-07-10 | Outpatient (CLI) | payer MEDICARE, OTHER ==
[~2022-07-10] MED LIST changes: -LIDOCAINE 1% INJ 30 ML (XYLOCAINE) VIAL INJ ONE
== END ==
LOC: CARD 11:28
PROVIDERS: ATTEND Internal Medicine Hematology & Oncology
DX: Z51.11 Encounter for antineoplastic chemotherapy (principal); C50.412 Malignant neoplasm of upper-outer quadrant of left female breast; I07.1 Rheumatic tricuspid insufficiency; I34.0 Nonrheumatic mitral (valve) insufficiency
CPT/HCPCS: 93356; C8929; 93306

== ENCOUNTER 2022-07-30 07:12 | Emergency (ER) | payer MEDICARE, OTHER ==
[~2022-07-30] VITALS: Ht 152 cm; Wt 68.0 kg
[2022-07-30 07:30] VITALS: BP 127/82
[2022-07-30] MEDS ORDERED: NS IV 1000 ML 1,000 ML IV STA (07:42)
[2022-07-30 08:06] LABS: MEAN CORPUSCULAR VOLUME 95 fL (80-99)
[2022-07-30 08:08] LABS: BASOPHILS % (AUTO) 0 % (0-10); EOSINOPHILS % (AUTO) 3 % (0-10); HEMATOCRIT 36 % (35-52); LYMPHOCYTES # (AUTO) 0.5 10^3/uL (1.0-4.0); LYMPHOCYTES % (AUTO) 38 % (12-44); MEAN CORPUSCULAR HEMOGLOBIN 32 pg (25-34); MEAN CORPUSCULAR HGB CONC 34 g/dL (32-36); MEAN PLATELET VOLUME 10.2 fL (9.0-12.2); MONOCYTES % (AUTO) 3 % (0-12); NEUTROPHILS # (AUTO) 0.6 10^3/uL (1.8-7.8); NEUTROPHILS % (AUTO) 51 % (42-75); PLATELET COUNT 77 10^3/uL (130-400)
[2022-07-30 08:11] LABS: WHITE BLOOD COUNT 1.2 10^3/uL (4.3-11.0)
[2022-07-30 08:16] LABS: ALBUMIN 3.6 GM/DL (3.2-4.5); POTASSIUM 3.6 MMOL/L (3.6-5.0)
[2022-07-30 08:17] LABS: CALCIUM 8.4 MG/DL (8.5-10.1)
[2022-07-30 08:19] LABS: TOTAL PROTEIN 6.2 GM/DL (6.4-8.2)
[2022-07-30 08:20] LABS: BILIRUBIN,TOTAL 0.7 MG/DL (0.1-1.0)
[2022-07-30 08:22] LABS: CREATININE SERUM 0.74 MG/DL (0.60-1.30)
--- NOTE | 2022-07-30 08:22 | ED General ---
General Chief Complaint: Lower Extremity Stated Complaint: FALL, ANKLE PAIN Nursing Triage Note: Patient to ER FT1 via wc. Patient states she passed out on the toilet yesterday 07/29/2022 approx 0830. Patients ankle is swollen and in pain 5/10. Patient states the pain is up into her knee and hip. hx of breast cancer. patient denies being on blood thinners. Source of Information: Patient Exam Limitations: No Limitations History of Present Illness Date Seen by Provider: Jul 30, 2022 Time Seen by Provider: 07:33 Initial Comments Here with due to fall overnight. Apparently she passed out on the toilet while trying to have a bowel movement. She also passed out in the shower. states that she passed out at least 3 times. States that she recovered pretty well but was definitely out of it for a little bit during the bowel movements or stomach upset. Patient does have history of breast cancer and she is currently on chemotherapy with her last dose last Sunday. She states usually on Sunday and Sunday are her bad days after chemotherapy and they were this week as well. She states that it causes constipation and she has been using MiraLAX 1 capful at night and last night started having fairly significant bowel movement, during which she passed out. She also states that she had abdominal cramping which may have been the reason when she passed out during the shower. She does report hitting her head and does have some neck kamari n. She also complains of right ankle pain with swelling and has some right hip and right knee pain. Those are a little better today but she still feels bony pain to the right hip and certainly pain to the right ankle. She has swelling on the lateral aspect of the right ankle. States that she probably has not been drinking as well as she should due to postchemotherapy illness. She follows with [facility] and locally with Dr. Walters for her oncology. Timing/Duration: 12 Hours Severity: Moderate Associated Systoms: No Fever/Chills; Headaches; No Nausea/Vomiting; Syncope Allergies and Home Medications Allergies Coded Allergies: No Known Drug Allergies (Unverified , 08/13/20) Patient Home Medication List Home Medication List Reviewed: Yes Abobotulinumtoxina (Dysport) 300 Unit Vial, 300 UNIT IM every 4 months, (Reported) Entered as Reported by: SATINDER CHA on 08/13/20 1034 Calcium Carbonate/Vitamin D3 (Caltrate 600 + D Soft Chew Tab) 1 Each Tab.chew, 1 EACH PO DAILY, (Reported) Entered as Reported by: SATINDER CHA on 08/13/20 1034 Cetirizine HCl (Zyrtec) 10 Mg Tablet, 10 MG PO DAILY, (Reported) Entered as Reported by: SATINDER CHA on 08/13/20 1034 Cholecalciferol (Vitamin D3) (Vitamin D3) 50 Mcg Tablet, 50 MCG PO DAILY, (Reported) Entered as Reported by: SATINDER CHA on 08/13/20 1034 Cranberry Conc/C/Bacill Coag (Azo Cranberry Tablet) 1 Each Tablet, 2 EACH PO DAILY, (Reported) Entered as Reported by: SATINDER CHA on 08/13/20 1034 Cyanocobalamin (Vitamin B-12) (B-12) 1,000 Mcg Tablet, 1,000 MCG PO DAILY, (Reported) Entered as Reported by: SATINDER CHA on 08/13/20 1034 Duloxetine HCl (Duloxetine HCl) 20 Mg Capsule.dr, 20 MG PO DAILY, (Reported) Entered as Reported by: SATINDER CHA on 08/13/20 1034 Hydrocodone Bit/Acetaminophen (HYDROcodone/APAP 5 MG/325 MG TAB) 1 Tab Tab, 1 TAB PO Q8H PRN for PAIN-MODERATE (5-7) Prescribed by: SAL MONROE on 08/16/20 1346 Levothyroxine Sodium (Levothyroxine) 125 Mcg Capsule, 125 MCG PO DAILY, (Reported) Entered as Reported by: SATINDER CHA on 08/13/20 1034 Omeprazole (Omeprazole) 20 Mg Capsule.dr, 20 MG PO DAILY, (Reported) Entered as Reported by: SATINDER CHA on 08/13/20 1034 Oxcarbazepine (Oxcarbazepine) 150 Mg Tablet, 150 MG PO BID, (Reported) Entered as Reported by: SATINDER CHA on 08/13/20 1019 Rizatriptan Benzoate (Maxalt) 10 Mg Tablet, 10 MG PO UD PRN for migraines, (Reported) Entered as Reported by: SATINDER CHA on 08/13/20 1034 Zinc Gluconate (Zinc) 50 Mg Tablet, 50 MG PO DAILY, (Reported) Entered as Reported by: SATINDER CHA on 08/13/20 1034 Review of Systems Review of Systems Constitutional: see HPI; No chills, No fever EENTM: no symptoms reported Respiratory: no symptoms reported Cardiovascular: No chest pain; syncope Gastrointestinal: abdominal pain (Generalized cramping intermittent and mild to moderate but gone now.), constipation; No nausea, No vomiting Musculoskeletal: joint pain, joint swelling, muscle pain, neck pain Skin: change in color (Right ankle); No lesions Psychiatric/Neurological: Headache; Denies Weakness Past Uwwfhkc-Xixrll-Ykqdbr Hx Patient Social History Tobacco Use?: No Substance use?: No Alcohol Use?: No Immunizations Up To Date COVID19 Vaccine Epic Director: Moderna Seasonal Allergies Seasonal Allergies: Yes Past Medical History Surgeries: Yes (bilat femur fx, ) Section, Hysterectomy, Tonsillectomy Respiratory: No Cardiac: No Neurological: No (facial tremors) Genitourinary: Yes UTI-Chronic Gastrointestinal: No Musculoskeletal: Yes Arthritis, Fractures Endocrine: Yes Hypothyroidsim HEENT: No (cataracts removed) Cancer: Yes (endometrial) Breast Did You Recieve Any Treatments: Yes What Type of Treatment Did You: Chemotherapy Psychosocial: No Integumentary: No Blood Disorders: No Family Medical History Reviewed Nursing Family Hx Physical Exam Vital Signs Vital Signs - First Documented 07/30/22 07:30 Temp 36.5 Pulse 109 Resp 18 B/P (MAP) 127/82 (97) Pulse Ox 98 O2 Delivery Room Air Capillary Refill : Less Than 3 Seconds Height, Weight, BMI Height: '" Weight: lbs. oz. kg; 29.00 BMI Method: General Appearance: No Apparent Distress, WD/WN HEENT: PERRL/EOMI, Pharynx Normal Neck: Full Range of Motion, Supple, Tender Lateral Respiratory: Lungs Clear, Normal Breath Sounds Cardiovascular: Regular Rate, Rhythm, No Murmur Gastrointestinal: Normal Bowel Sounds, Non Tender, Soft Back: Normal Inspection, No CVA Tenderness, No Vertebral Tenderness Extremity: Swelling (Right ankle lateral aspect. Tender right lateral hip. Knee with good mobility without significant swelling but some pain with range of motion) Neurologic/Psychiatric: Alert, Oriented x3 Skin: Normal Color, Warm/Dry, Ecchymosis (Right ankle) Progress/Results/Core Measures Suspected Sepsis SIRS Temperature: Pulse: 109 Respiratory Rate: 18 Laboratory Tests 07/30/22 08:03: White Blood Count 1.2*L Blood Pressure 127 /82 Mean: 97 Laboratory Tests 07/30/22 08:03: Creatinine 0.74, Platelet Count 77L, Total Bilirubin 0.7 Results/Orders Lab Results Laboratory Tests Test 07/30/22 08:03 Range/Units White Blood Count 1.2 *L 4.3-11.0 10^3/uL Red Blood Count 3.74 L 3.80-5.11 10^6/uL Hemoglobin 12.0 11.5-16.0 g/dL Hematocrit 36 35-52 % Mean Corpuscular Volume 95 80-99 fL Mean Corpuscular Hemoglobin 32 25-34 pg Mean Corpuscular Hemoglobin Concent 34 32-36 g/dL Red Cell Distribution Width 11.9 10.0-14.5 % Platelet Count 77 L 130-400 10^3/uL Mean Platelet Volume 10.2 9.0-12.2 fL Immature Granulocyte % (Auto) 6 % Neutrophils (%) (Auto) 51 42-75 % Lymphocytes (%) (Auto) 38 12-44 % Monocytes (%) (Auto) 3 0-12 % Eosinophils (%) (Auto) 3 0-10 % Basophils (%) (Auto) 0 0-10 % Neutrophils # (Auto) 0.6 L 1.8-7.8 10^3/uL Lymphocytes # (Auto) 0.5 L 1.0-4.0 10^3/uL Monocytes # (Auto) 0.0 0.0-1.0 10^3/uL Eosinophils # (Auto) 0.0 0.0-0.3 10^3/uL Basophils # (Auto) 0.0 0.0-0.1 10^3/uL Immature Granulocyte # (Auto) 0.1 0.0-0.1 10^3/uL Percent Immature Platelet Fraction 3.6 0.0-7.6 % Sodium Level 135 135-145 MMOL/L Potassium Level 3.6 3.6-5.0 MMOL/L Chloride Level 101 98-107 MMOL/L Carbon Dioxide Level 25 21-32 MMOL/L Anion Gap 9 5-14 MMOL/L Blood Urea Nitrogen 15 7-18 MG/DL Creatinine 0.74 0.60-1.30 MG/DL Estimat Glomerular Filtration Rate 86 BUN/Creatinine Ratio 20 Glucose Level 208 H 70-105 MG/DL Calcium Level 8.4 L 8.5-10.1 MG/DL Corrected Calcium 8.7 8.5-10.1 MG/DL Total Bilirubin 0.7 0.1-1.0 MG/DL Aspartate Amino Transf (AST/SGOT) 14 5-34 U/L Alanine Aminotransferase (ALT/SGPT) 20 0-55 U/L Alkaline Phosphatase 63 40-136 U/L C-Reactive Protein High Sensitivity 1.95 H 0.00-0.50 MG/DL Total Protein 6.2 L 6.4-8.2 GM/DL Albumin 3.6 3.2-4.5 GM/DL Smear Scan My Orders Orders - HARISH RAMIREZ MD Ct Head/Cervical Spine Wo (07/30/22 07:42) Knee, Right, 3 Views (07/30/22 07:42) Ankle, Right, 3 Views (07/30/22 07:42) Pelvis With Right Hip 2-3views (07/30/22 07:42) Cbc With Automated Diff (07/30/22 07:42) Comprehensive Metabolic Panel (07/30/22 07:42) Hs C Reactive Protein (07/30/22 07:42) Ns Iv 1000 Ml (Sodium Chloride 0.9%) (07/30/22 07:42) Ed Iv/Invasive Line Start (07/30/22 07:42) Acetaminophen Tablet (Tylenol Tablet) (07/30/22 08:49) Vital Signs/I&O 07/30/22 07:30 Temp 36.5 Pulse 109 Resp 18 B/P (MAP) 127/82 (97) Pulse Ox 98 O2 Delivery Room Air Capillary Refill : Less Than 3 Seconds Blood Pressure Mean: 97 Progress Note : Progress Note Seen and evaluated. IV via port access. We will get CT of the head neck due to syncopal episode with head injury and neck pain. X-ray right hip and pelvis as well as right knee and right ankle. Given that she is on chemotherapy and she has concerns of dehydration, we will go ahead and initiate IV fluid with normal saline 1 L bolus and check basic labs for electrolyte abnormality. This was discussed with patient and family who agree. Monitor patient. Differential diagnosis includes intracranial injury, head injury, C-spine injury, right hip injury, right knee injury, right ankle injury or fracture, electrolyte abnormality and dehydration 0910: I have reviewed the x-rays and the ankle x-ray does show oblique fracture of the right fibula on my interpretation. I do not find any acute findings on the knee or right hip/pelvis on my interpretation. CT report pending. We will go ahead and place Jack wrap and walking boot and she will need to follow-up with orthopedics. They are familiar with Dr. Rasmussen and I will give his information and he is on-call today. She has a walker at home and will use that. She did receive Tylenol 1000 mg p.o. for pain. 0938: Labs reviewed. White count is 1.2 with ANC of 0.6. Chemistry is grossly normal although glucose elevated at 208 and CRP is slightly elevated but consistent with recent chemotherapy. I do not believe there is infectious process currently. I will send a copy of the chart to Dr. Walters as well as Dr. Rasmussen. CT report shows no acute findings of the head or C-spine. Discharged home with return precautions. Patient and family verbalized understanding of instructions and agreement with plan. Diagnostic Imaging Diagonstic Imaging: Xray Comments [facility] [place], [place] NAME: ELKE LINARES [facility] REC#: [id number] PT STATUS: REG ER : 1950 PHYSICIAN: HARISH RAMIREZ MD ADMIT DATE: 07/30/22/ER Signed Date of Exam:07/30/22 ANKLE, RIGHT, 3 VIEWS EXAMINATION: Right ankle radiographs, 3 views. COMPARISON: None. HISTORY: 72-year-old female, right ankle pain. FINDINGS: There is an oblique essentially nondisplaced distal fibular fracture extending upwards from the level of the tibial plafond. There is adjacent soft tissue swelling. The alignment of the ankle mortise is unremarkable. There is no tibiotalar joint effusion. There is degenerative type calcaneal enthesopathy. IMPRESSION: 1. Essentially nondisplaced obliquely oriented distal fibular fracture extending upwards from the level of the tibial plafond. 2. No identified abnormal alignment of the ankle mortise. Dictated by: Dictated on workstation # [id number] Dict: 07/30/22 0847 Trans: 07/30/22906 [facility] [place] [id number] Interpreted by: JONATHAN ROBLES MD Electronically signed by: JONATHAN ROBLES MD 07/30/22906 Diagonstic Imaging: Xray Plain Films/CT/US/NM/MRI: knee Comments [facility] [place], [place] NAME: ELKE LINARES [facility] REC#: [id number] PT STATUS: REG ER : 1950 PHYSICIAN: HARISH RAMIREZ MD ADMIT DATE: 07/30/22/ER Draft Date of Exam:07/30/22 KNEE, RIGHT, 3 VIEWS INDICATION: Passed out on toilet, pain FINDINGS: 3 view right knee performed. There is intramedullary brian in the distal femur with old healed mid shaft deformities. The distal femur, patella, proximal tibia and fibula show degenerative changes but are nonacute. No joint effusion or loose body. IMPRESSION: No acute appearing abnormality at the knee. Postoperative femur appeared chronic where visualized. Dictated on workstation # [id number] Dict: 07/30/2243 Trans: 07/30/2252 [facility] [id number] Interpreted by: CRESCENCIO BRADSHAW Electronically signed by: Diagonstic Imaging: Xray Plain Films/CT/US/NM/MRI: pelvis, hip Comments [facility] [place] [place] NAME: ELKE LINARES [facility] REC#: [id number] PT STATUS: REG ER : 1950 PHYSICIAN: HARISH RAMIREZ MD ADMIT DATE: 07/30/22/ER Draft Date of Exam:07/30/22 PELVIS WITH RIGHT HIP 2-3VIEWS INDICATION: Hip pain, passed out on toilet. No previous for direct comparison. Study however correlated with abdominal pelvic CT dated 03/30/2021. Chronic deformities and postoperative changes to the right femur stable. Soft tissue ossifications and/or old bony fragments superior to the greater trochanter chronic. No acute osseous or hardware fracture deformity of the femoral head showed no articular collapse. There is moderate degenerative changes to the left greater than right hips chronic. Left hip postsurgical changes are stable. Some chronic enthesopathy off the right iliac crest stable. IMPRESSION: Unchanged remote CT. No extensive postsurgical changes and chronic healed deformities with no acute appearing abnormality identified. Dictated on workstation # [id number] Dict: 07/30/22 0841 Trans: 07/30/22 0853 [facility] [place] [id number] Interpreted by: CRESCENCIO BRADSHAW Electronically signed by: Bonnie Imaging: CT Plain Films/CT/US/NM/MRI: c-spine, head Comments [facility] [place] [place] NAME: ELKE LINARES [facility] REC#: [id number] PT STATUS: REG ER : 1950 PHYSICIAN: HARISH RAMIREZ MD ADMIT DATE: 07/30/22/ER Signed Date of Exam:07/30/22 CT HEAD/CERVICAL SPINE WO PROCEDURE: CT head and CT cervical spine without contrast. TECHNIQUE: Multiple contiguous axial images were obtained through the brain and cervical spine without the use of intravenous contrast. Sagittal and coronal reformations through the cervical spine were then performed. Auto Exposure Controls were utilized during the CT exam to meet ALARA standards for radiation dose reduction. DATE: July 30, 2022. COMPARISON: None. INDICATION: 72-year-old female, syncope. Head and neck pain. FINDINGS: There is a focal area of low-attenuation in the region of the right basal ganglia likely reflecting a remote prior lacunar infarct versus prominent perivascular space. A similar finding is present in the region of the left inferior basal ganglia. The ventricles and cerebral spinal fluid spaces are of normal size and configuration for the patient's age. There is no mass effect or midline shift. There is no acute intracranial hemorrhage. There is no abnormal extra-axial fluid collection. The visualized portions of the paranasal sinuses, mastoid air cells and middle ears are well aerated. There is no identified facet joint subluxation or dislocation. There are multilevel facet degenerative changes of the cervical spine. There is no asymmetric widening of the cervical disc heights. The cervical disc spaces are well preserved. CT is limited for assessment of disc pathology as well as additional nonbony causes of pathology in the spinal canal. There is no identified acute fracture of the cervical spine. There is a normal variant azygous lobe. Limited visualized portions of the lung apices are grossly clear. There are carotid vascular calcifications. IMPRESSION: 1. No identified acute intracranial abnormality. 2. Prominent perivascular spaces versus remote prior infarct in the bilateral basal ganglia. 3. No identified acute abnormality of the cervical spine. 4. Multilevel degenerative changes of the cervical spine mostly facet degenerative changes. Dictated by: Dictated on workstation # [id number] Dict: 07/30/22824 Trans: 07/30/22906 [facility] [place] [id number] Interpreted by: JONATHAN ROBLES MD Electronically signed by: JONATHAN ROBLES MD 07/30/22906 Departure Impression Primary Impression: Closed right ankle fracture Qualified Codes: S82.891A - Other fracture of right lower leg, initial encounter for closed fracture Additional Impressions: Contusion of right hip Qualified Codes: S70.01XA - Contusion of right hip, initial encounter Leukopenia due to antineoplastic chemotherapy Syncope Qualified Codes: R55 - Syncope and collapse Disposition: 01 HOME, SELF-CARE Condition: Improved Departure-Patient Inst. Decision time for Depature: 09:41 Referrals: SHABANA RODRIGUEZ MD (PCP) Primary Care Physician Patient Instructions: Ankle Fracture ED, Contusion (DC), Syncope (Fainting) (DC) Add. Discharge Instructions: All discharge instructions reviewed with patient and/or family. Voiced unders tanding. Call Dr. Crenshaw' office in the morning and let them know that you were seen in the ED and they can see if they want a repeat labs. Also let them know about the ankle fracture to determine if you will get chemotherapy this week. Use boot at all times while moving around. You may remove that for sleeping or bathing but do not put significant pressure on the foot. Follow-up with Dr. Rasmussen for recheck and further evaluation. Call his office in the morning for appointment this week. For constipation, you may use MiraLAX of the generic one half capful twice daily as needed to keep stools soft. You may increase or decrease dose to keep stools in normal range. Drink plenty of fluids. Return for worse pain, swelling, weakness, breathing problems or other concerns as needed. Copy Copies To 1: TINY ALLISON Copies To 2: LES RASMUSSEN MD, TIMOTHY D MD Jul 30, 2022 08:21
--- NOTE | 2022-07-30 08:45 | Diagnostic Imaging Report ---
PROCEDURE: CT head and CT cervical spine without contrast. TECHNIQUE: Multiple contiguous axial images were obtained through the brain and cervical spine without the use of intravenous contrast. Sagittal and coronal reformations through the cervical spine were then performed. Auto Exposure Controls were utilized during the CT exam to meet ALARA standards for radiation dose reduction. DATE: July 30, 2022. COMPARISON: None. INDICATION: 72-year-old female, syncope. Head and neck pain. FINDINGS: There is a focal area of low-attenuation in the region of the right basal ganglia likely reflecting a remote prior lacunar infarct versus prominent perivascular space. A similar finding is present in the region of the left inferior basal ganglia. The ventricles and cerebral spinal fluid spaces are of normal size and configuration for the patient's age. There is no mass effect or midline shift. There is no acute intracranial hemorrhage. There is no abnormal extra-axial fluid collection. The visualized portions of the paranasal sinuses, mastoid air cells and middle ears are well aerated. There is no identified facet joint subluxation or dislocation. There are multilevel facet degenerative changes of the cervical spine. There is no asymmetric widening of the cervical disc heights. The cervical disc spaces are well preserved. CT is limited for assessment of disc pathology as well as additional nonbony causes of pathology in the spinal canal. There is no identified acute fracture of the cervical spine. There is a normal variant azygous lobe. Limited visualized portions of the lung apices are grossly clear. There are carotid vascular calcifications. IMPRESSION: 1. No identified acute intracranial abnormality. 2. Prominent perivascular spaces versus remote prior infarct in the bilateral basal ganglia. 3. No identified acute abnormality of the cervical spine. 4. Multilevel degenerative changes of the cervical spine mostly facet degenerative changes. Dictated by: Dictated on workstation # [id number]
[2022-07-30] MEDS ORDERED: ACETAMINOPHEN 500 MG TAB (TYLENOL) PO STA (08:49)
--- NOTE | 2022-07-30 08:50 | Diagnostic Imaging Report ---
EXAMINATION: Right ankle radiographs, 3 views. COMPARISON: None. HISTORY: 72-year-old female, right ankle pain. FINDINGS: There is an oblique essentially nondisplaced distal fibular fracture extending upwards from the level of the tibial plafond. There is adjacent soft tissue swelling. The alignment of the ankle mortise is unremarkable. There is no tibiotalar joint effusion. There is degenerative type calcaneal enthesopathy. IMPRESSION: 1. Essentially nondisplaced obliquely oriented distal fibular fracture extending upwards from the level of the tibial plafond. 2. No identified abnormal alignment of the ankle mortise. Dictated by: Dictated on workstation # [id number]
--- NOTE | 2022-07-30 08:53 | Diagnostic Imaging Report ---
INDICATION: Hip pain, passed out on toilet. No previous for direct comparison. Study however correlated with abdominal pelvic CT dated 03/30/2021. Chronic deformities and postoperative changes to the right femur stable. Soft tissue ossifications and/or old bony fragments superior to the greater trochanter chronic. No acute osseous or hardware fracture deformity of the femoral head showed no articular collapse. There is moderate degenerative changes to the left greater than right hips chronic. Left hip postsurgical changes are stable. Some chronic enthesopathy off the right iliac crest stable. IMPRESSION: Unchanged remote CT. No extensive postsurgical changes and chronic healed deformities with no acute appearing abnormality identified. Dictated by: Dictated on workstation # [id number]
--- NOTE | 2022-07-30 08:53 | Diagnostic Imaging Report ---
INDICATION: Passed out on toilet, pain FINDINGS: 3 view right knee performed. There is intramedullary brian in the distal femur with old healed mid shaft deformities. The distal femur, patella, proximal tibia and fibula show degenerative changes but are nonacute. No joint effusion or loose body. IMPRESSION: No acute appearing abnormality at the knee. Postoperative femur appeared chronic where visualized. Dictated by: Dictated on workstation # [id number]
== END 2022-07-30 10:12 | disposition home or self-care (01) ==
LOC: EDUNIT# 07:12 → ER 07:15
DX: S82.831A Other fracture of upper and lower end of right fibula, initial encounter for closed fracture (principal); S70.01XA Contusion of right hip, initial encounter; R55 Syncope and collapse; C50.919 Malignant neoplasm of unspecified site of unspecified female breast; D70.1 Agranulocytosis secondary to cancer chemotherapy; W19.XXXA Unspecified fall, initial encounter
CPT/HCPCS: 70450; 72125; 73502; 73562; 73610; 80053; 85025; 86141; L2114; 36415

== ENCOUNTER → 2022-08-02 | Outpatient (CLI) | payer MEDICARE, OTHER | END | disposition still patient (30) | LOC: ORTHO 11:07 | PROVIDERS: ATTEND Orthopaedic Surgery | DX: S82.63XA Displaced fracture of lateral malleolus of unspecified fibula, initial encounter for closed fracture (principal); X58.XXXA Exposure to other specified factors, initial encounter | CPT/HCPCS: 99203 ==

== ENCOUNTER → 2022-08-23 | Outpatient (CLI) | payer MEDICARE, OTHER ==
--- NOTE | 2022-08-23 09:04 | Diagnostic Imaging Report ---
INDICATION: Fracture, pain, followup. TECHNIQUE: Three views of the right ankle. CORRELATION STUDY: 07/30/2022. FINDINGS: The comminuted slightly obliquely oriented fracture of the distal fibular shaft is again demonstrated. Fracture lines are better visualized and the alignment appears near anatomic. Distal tibia is unchanged. Ankle mortise is maintained. Prominent plantar calcaneal spurring. Posterior calcaneal enthesopathy. Soft tissue edema present. IMPRESSION: No appreciable change in alignment or significant interval healing of the obliquely oriented relatively nondisplaced distal fibular fracture. Dictated by: Dictated on workstation # [id number]
== END ==
LOC: ORTHO 08:24
PROVIDERS: ATTEND Orthopaedic Surgery
DX: S82.64XD Nondisplaced fracture of lateral malleolus of right fibula, subsequent encounter for closed fracture with routine healing (principal); E03.9 Hypothyroidism, unspecified; X58.XXXD Exposure to other specified factors, subsequent encounter
CPT/HCPCS: 73610; G0463; 99213

== ENCOUNTER → 2022-09-27 | Outpatient (CLI) | payer MEDICARE, OTHER ==
--- NOTE | 2022-09-27 10:28 | Diagnostic Imaging Report ---
INDICATION: Follow-up lateral malleolus fracture. Time of Exam: 9:03 AM Correlation is made with prior radiograph from 08/21/2022. The obliquely oriented fracture of the distal fibula is again noted. Overall alignment is anatomic. Fracture lines remain visible, however. Ankle mortise is maintained. Talar dome is smooth. Large plantar calcaneal spur is noted. IMPRESSION: No significant change in the distal fibular fracture when compared with exam one month earlier. Fracture lines remain visible. Alignment is anatomic. Dictated by: Dictated on workstation # [id number]
== END ==
LOC: ORTHO 08:44
PROVIDERS: ATTEND Orthopaedic Surgery
DX: S82.64XD Nondisplaced fracture of lateral malleolus of right fibula, subsequent encounter for closed fracture with routine healing (principal); X58.XXXD Exposure to other specified factors, subsequent encounter
CPT/HCPCS: 73610; G0463; 99213

== ENCOUNTER → 2022-11-01 | Outpatient (CLI) | payer MEDICARE, OTHER ==
--- NOTE | 2022-11-01 10:48 | Diagnostic Imaging Report ---
INDICATION: Follow-up fracture. COMPARISON: None FINDINGS: Multiple radiographic views of the right ankle were obtained and again demonstrate nonacute obliquely oriented fracture of the distal fibula. Fracture fragments are in stable alignment. There is no significant bridging callus formation or other evidence of significant interval healing. No new acute osseous abnormalities seen. Joint spaces are maintained. No unexpected radiopaque foreign bodies are seen. IMPRESSION: 1. Stable nonacute fracture of the distal right fibula. Dictated by: Dictated on workstation # [id number]
== END ==
LOC: ORTHO 09:05
PROVIDERS: ATTEND Orthopaedic Surgery
DX: S82.64XD Nondisplaced fracture of lateral malleolus of right fibula, subsequent encounter for closed fracture with routine healing (principal); X58.XXXD Exposure to other specified factors, subsequent encounter
CPT/HCPCS: 73610; G0463; 99213

== ENCOUNTER → 2023-02-01 | Outpatient (RCR) | payer MEDICARE, OTHER | END | disposition home or self-care (01) | LOC: ONC 01-08 10:55 | PROVIDERS: ATTEND Radiology Radiation Oncology | DX: Z51.0 Encounter for antineoplastic radiation therapy (principal); C50.412 Malignant neoplasm of upper-outer quadrant of left female breast; Z85.42 Personal history of malignant neoplasm of other parts of uterus; Z86.16 Personal history of COVID-19 | CPT/HCPCS: 77280; 77290; 77295; 77300; 77334; 77336; 77417; 77470; 99214 ==

== ENCOUNTER 2023-02-27 14:01 | Outpatient (RCR) | payer MEDICARE, OTHER | END 2023-03-03 | disposition home or self-care (01) | LOC: ONC 14:01 | PROVIDERS: ATTEND Radiology Radiation Oncology | DX: Z51.0 Encounter for antineoplastic radiation therapy (principal); C50.412 Malignant neoplasm of upper-outer quadrant of left female breast; Z85.42 Personal history of malignant neoplasm of other parts of uterus | CPT/HCPCS: 77307; 77334; 77336; 77417 ==

== ENCOUNTER 2023-04-12 09:47 | Outpatient (RCR) | payer MEDICARE, OTHER | END 2023-05-03 | disposition home or self-care (01) | LOC: ONC 09:47 | PROVIDERS: ATTEND Radiology Radiation Oncology | DX: C50.412 Malignant neoplasm of upper-outer quadrant of left female breast (principal); Z85.42 Personal history of malignant neoplasm of other parts of uterus | CPT/HCPCS: 99213 ==